=== PATIENT | female | born 1985 | race Caucasian/White ===

== ENCOUNTER 2019-02-27 00:02 | Emergency (ER) | payer OTHER ==
[~2019-02-27] VITALS: Ht 167.6 cm; Wt 98.9 kg
[~2019-02-27 00:02] MED LIST: CIPRO750 MG PO; MOTRIN800 MG PO; NABUMETONE750 MG PO
[2019-02-27] MEDS ORDERED: FOLIC ACID0.4 MG (00:15)
== END 2019-02-27 14:07 | disposition home or self-care (01) ==
LOC: ER 00:02
DX: O20.0 Threatened abortion (principal)

== ENCOUNTER → 2019-07-08 | Outpatient (CLI) | payer OTHER ==
[~2019-07-08] MED LIST changes: +FOLIC ACID0.4 MG
== END | disposition home or self-care (01) ==
LOC: PRENATAL 13:00
DX: O36.8121 Decreased fetal movements, second trimester, fetus 1 (principal); O99.212 Obesity complicating pregnancy, second trimester

== ENCOUNTER 2019-10-09 13:56 | Inpatient (IN) | payer OTHER ==
[~2019-10-09] VITALS: Ht 167.6 cm; Wt 113.9 kg
[2019-10-09] MEDS ORDERED: PRENATAL TABLE1 EAC1 PO (15:23)
[2019-10-09] MEDS ORDERED: ASPIR 8181 MG PO (15:23)
== END 2019-10-11 13:53 | disposition home or self-care (01) | DRG 807 ==
LOC: LDR 13:56 → OB/GYN 13:56 → LDR 10-10 01:06 → OB/GYN 10-10 14:08
PROVIDERS: ADMIT Specialist
PROC: 10E0XZZ Delivery of Products of Conception, External Approach (ICD-10-PCS; principal; 2019-10-09)
PROC: 0UQGXZZ Repair Vagina, External Approach (ICD-10-PCS; 2019-10-09)
PROC: 0UQMXZZ Repair Vulva, External Approach (ICD-10-PCS; 2019-10-09)
PROC: 3E033VJ Introduction of Other Hormone into Peripheral Vein, Percutaneous Approach (ICD-10-PCS; 2019-10-09)
PROC: 10907ZC Drainage of Amniotic Fluid, Therapeutic from Products of Conception, Via Natural or Artificial Opening (ICD-10-PCS; 2019-10-09)
PROC: 4A1HXCZ Monitoring of Products of Conception, Cardiac Rate, External Approach (ICD-10-PCS; 2019-10-09)
DX: O71.4 Obstetric high vaginal laceration alone (principal); Z37.0 Single live birth; O71.82 Other specified trauma to perineum and vulva; Z3A.38 38 weeks gestation of pregnancy

== ENCOUNTER 2020-01-03 10:05 | Emergency (ER) | payer OTHER ==
[~2020-01-03] VITALS: Ht 167.6 cm; Wt 104.3 kg
[~2020-01-03 10:05] MED LIST changes: +ASPIR 8181 MG PO; +PRENATAL TABLE1 EAC1 PO
== END 2020-01-03 13:43 | disposition home or self-care (01) ==
LOC: ER 10:05
DX: R42 Dizziness and giddiness (principal); R51 Headache; R00.2 Palpitations